=== PATIENT | female | born 1960 | race Caucasian/White ===

== ENCOUNTER 2022-04-10 09:21 | Emergency (ER) | payer SELFPAY ==
[2022-04-10 09:22] VITALS: BP 152/96; PULSE 82; RESP 14; TEMP 36.6; O2SAT 98; BMI 22.1
--- NOTE | 2022-04-10 10:01 | CT_ITS ---
STUDY: CT ABDOMEN AND PELVIS WITHOUT CONTRAST REASON FOR EXAM: Female, 61 years old. Right flank pain. Patient has a history of kidney stones. RADIATION DOSAGE (If Supplied By Facility): CTDIvol = ( 5.56 ) mGy, DLP = ( 251.61 ) mGycm TECHNIQUE: Transaxial images were obtained from the dome of the diaphragm to the symphysis pubis without oral contrast, and without intravenous contrast. Sagittal and coronal images were reconstructed. Individualized dose optimization techniques were used for this CT. COMPARISON: None. FINDINGS: The visualized lung bases are unremarkable. The visualized portions of the heart are within normal limits. Normal liver. The gallbladder is not visualized most likely secondary to prior cholecystectomy. Normal spleen. Normal pancreas. Normal bilateral adrenal glands. There is a mild degree of right hydronephrosis and right hydroureter down to the level of the urinary bladder. No obstructive calculus is seen at this time. Normal left kidney. Surgical clips are seen in the gastroesophageal junction in keeping with the prior partial gastrectomy and gastric bypass surgery. Normal small intestine. Normal colon. The appendix is visualized and appears normal. Normal abdominal aorta. Normal inferior vena cava. Normal retroperitoneum. Normal urinary bladder. Multiple venous collaterals are seen in the anterior subcutaneous tissues overlying the lower pelvic wall. There are mild degenerative changes of the visualized lumbar spine. CT/Abdomen/Pelvis without Cont IMPRESSION: Mild degree of right hydronephrosis and right hydroureter down to the level of the urinary bladder although no obstructive calculus is seen. Multiple venous collaterals are seen in the subcutaneous tissues of the anterior pelvic wall. The patient is status post cholecystectomy. Electronically Signed: Juvenal Cervantes MD at 11:18 EDT ,
[2022-04-10] MEDS: 0.9% Normal Saline 1,000 ML 1000 ML IV (10:12)
[2022-04-10 10:17] LABS: Absolute Lymphocyte Count 1.35 X10^3/uL (0.83-4.51); Absolute Neutrophil Count 4.2 X10^3/uL (2.0-7.7); Basophil# 0.02 X10^3/uL; Basophil% 0.3 % (0-1); Eosinophil# 0.02 X10^3/uL; Eosinophils% 0.3 % (0-5); Hematocrit 41.6 % (37-47); Hemoglobin 12.8 g/dL (12.0-15.0); Lymphocyte # 1.35 X10^3/ul (0.83-4.51); Lymphocyte % 22.7 % (19-41); Mean Corp Hgb Conc 30.8 g/dL (32-36); Mean Corpuscular Hgb 24.2 pg (27.0-32.0); Mean Corpuscular Volume 78.8 fL (81-99); Mean Platelet Vol. 9.5 fl (6.2-12.0); Monocyte# 0.35 X10^3/uL; Monocyte% 5.9 % (0-10); NRBC Flagged by Analyzer 0 % (0-5); Neutrophil # 4.18 X10^3/uL (2.7-7.7); Neutrophil % 70.3 % (47-70); Platelet Count 289 K/mm3 (150-450); RBC Distribution Width CV 14.6 % (11.6-14.6); RBC Distribution Width SD 41.5 fl (35.1-43.9); Red Blood Count 5.28 M/mm3 (4.2-5.4)
[2022-04-10 10:27] LABS: Anion Gap 6 (5-15); BUN 12 mg/dL (7-18); BUN/Creat Ratio 17.2 RATIO (10-20); Calcium,Total 9.3 mg/dL (8.5-10.1); Chloride 108 mmol/L (98-107); EST Glomerular Filtration Rate 91 mL/min (>60); Est Glom Filt Rate - Afr Amer 111 mL/min (>60); Estimated Creatinine Clearance 81.01 ml/min; Glucose 79 mg/dL (74-106); Potassium 4.6 mmol/L (3.5-5.1); Sodium Level 141 mmol/L (136-145)
[2022-04-10] MEDS: Ketorolac 30 MG/ML Syringe IV (10:32)
[2022-04-10 10:54] LABS: Mucous, Urine 0 SEEN /hpf (<or=2+); Squamous Epithelial Cells - UA 0 SEEN /hpf (5-10)
--- NOTE | 2022-04-10 10:54 | EX.ED.DYSGE1 ---
HPI History of Present Illness Chief Complaint: Flank Pain Informant: patient Onset/Context/Timing Onset: Days (3) Context: Gradual Onset Timing: Continuous Quality: Aching Location: Right flank Worsened by: Nothing Relieved by: Heating pad Narrative Narrative: Patient presents with right flank pain that has been constant for the past 3 days. Patient states it has gotten gradually worse. Patient describes her pain as aching. Patient states it is over the right flank area. Patient states nothing makes it worse. Patient states it is better with a heating pad. Patient has noted some blood in her urine. Patient denies any fevers or chills. Patient denies any nausea or vomiting. Patient denies any dysuria. Patient states she has a history of kidney stones and history of urinary tract infections. [facility] Medical History (Updated 04/10/22 @ 12:[address] Keshav Cordero DO) Kidney stones Home Medications ciprofloxacin HCl 500 mg tablet 500 mg PO BID #14 TABLETS 04/10/22 [Rx Last Taken Unknown] Allergy/AdvReac Type Severity Reaction Status Date / Time azithromycin Allergy Hives Verified 04/10/22 09:22 sulfamethoxazole Allergy Hives Verified 04/10/22 09:22 [From Bactrim] trimethoprim [From Bactrim] Allergy Hives Verified 04/10/22 09:22 Surgical History (Updated 04/10/22 @ 11:24 by Merry Garza) History of cholecystectomy Hx of gastric bypass Social History Smoking Status: Never smoker ROS [facility] ED Constitutional Constitutional ED: Denies chills or fever(s) Eyes Eyes: Denies blurry vision or change in vision ENT ENT ED: Denies rhinorrhea or sore throat Cardiovascular Cardiovascular: Denies chest pain or palpitations Respiratory/Chest Respiratory/Chest: Denies cough or dyspnea Gastrointestinal Gastrointestinal: Denies nausea or vomiting Genitourinary Genitourinary ED: Reports hematuria; Denies dysuria Musculoskeletal Musculoskeletal: Reports back pain; Denies neck pain Integumentary Denies abscess or rash Neurologic Neurologic: Denies headache(s) or weakness Allergic/Immunologic Allergic/Immunologic ED: Denies mouth swelling or urticaria EXAM Physical Exam Const Vital Signs: 04/10/22 09:22 04/10/22 11:39 Temperature 97.9 F Temperature Source Temporal Pulse Rate 82 60 Respiratory Rate 14 Blood Pressure 152/96 H 140/89 H Blood Pressure Mean 114 106 Pulse Ox 98 Oxygen Delivery Method Room Air Positive well nourished and well developed General Appearance ED: well developed HEENT Reports moist mucous membranes Neck supple and no JVD Resp normal respiratory effort and clear to auscultation bilaterally Cardio regular rate, regular rhythm and no murmurs GI normal to inspection, nondistended, normoactive bowel sounds and non-tender Palpation: soft Back/Spine General Back: CVA tenderness right Extremity normal to inspection General Extremety ED: Negative for edema or tenderness General Extremity: Negative for edema Neuro oriented x3, CN's II-XII intact bilaterally and no sensory deficits noted Sensorium / Orientation: alert Motor Exam: strength 5/5 throughout Psych mental status grossly normal Skin no rashes or lesions noted MDM MDM MDM Narrative Medical decision making narrative: Patient was given IV fluids and Toradol. CBC was within normal limits. Basic metabolic profile was essentially within normal limits. Urinalysis shows leukocyte esterases of 500 with 25-50 white blood cells and 1+ bacteria. Nitrates were positive. Occult blood was 150 with 10-25 red blood cells. Urine culture was ordered. CT scan of the abdomen pelvis was obtained. There is some right-sided hydronephrosis and hydroureter. There is no calculus visualized. This was interpreted by the radiologist and reviewed by myself. Patient was given a dose of Rocephin here. Patient was given a prescription for Cipro. Patient was instructed to follow-up with her primary care physician when she gets back home in [facility]. Patient was instructed return if worse in any way. Patient understood and was agreeable with plan. All questions were answered. Lab Data Attestation: I reviewed the patient's lab results. Labs: Laboratory Results - last 24 hr 04/10/22 04/10/22 04/10/22 10:10 10:10 10:45 WBC 6.0 RBC 5.28 Hgb 12.8 Hct 41.6 MCV 78.8 L MCH 24.2 L MCHC 30.8 L RDW Std Deviation 41.5 RDW Coeff of Micaela 14.6 Plt Count 289 MPV 9.5 Immature Gran % (Auto) 0.500 Neut % (Auto) 70.3 H Lymph % (Auto) 22.7 Stephenson % (Auto) 5.9 Eos % (Auto) 0.3 Baso % (Auto) 0.3 Absolute Neuts (auto) 4.2 Absolute Lymphs (auto) 1.35 Nucleated RBC % 0 Sodium 141 Potassium 4.6 Chloride 108 H Carbon Dioxide 27.0 Anion Gap 6 BUN 12 Creatinine 0.70 Estim Creat Clear Calc 81.01 Est GFR (MDRD) Af Amer 111 Est GFR (MDRD) Non-Af 91 BUN/Creatinine Ratio 17.2 Glucose 79 Calcium 9.3 Urine Color SEE COMMENT BELOW Urine Clarity Sl. Cloudy Urine pH 6.5 Ur Specific [place] 1.010 Urine Protein 30 H Urine Glucose (UA) Normal Urine Ketones 5 H Urine Occult Blood 150 H Urine Nitrite Positive H Urine Bilirubin 6 H Urine Urobilinogen 12 H Ur Leukocyte Esterase 500 H Urine RBC 10-25 SEEN Urine WBC 25-50 SEEN Ur Squamous Epith Cells 0 SEEN Urine Bacteria 1+ Urine Mucus 0 SEEN Radiography Diagnostic Testing: Clinical Impression(s) from Imaging Studies Abdomen/Pelvis CT 04/10/22 10:01 IMPRESSION: Mild degree of right hydronephrosis and right hydroureter down to the level of the urinary bladder although no obstructive calculus is seen. Multiple venous collaterals are seen in the subcutaneous tissues of the anterior pelvic wall. The patient is status post cholecystectomy. Electronically Signed: Juvenal Cervantes MD at 11:18 EDT , Discharge Plan Triage Chief Complaint: Flank Pain ED Provider: Keshav Cordero Dx/Rx/DC Orders Clinical Impression: Pyelonephritis, Hematuria Instructions: ED Pyelonephritis, Female (Adult) Prescriptions: New ciprofloxacin HCl [ciprofloxacin HCl] 500 MG tablet 500 mg PO BID Qty: 14 0RF Primary Care Provider: Care Physician,No Primary Referrals: Care Physician,No Primary [Primary Care Provider] - Doctor,Your [Non-Staff] - 5-7 Days Disposition Disposition: Home, Self Care
[2022-04-10 10:57] LABS: Glucose, Dipstick Normal (Normal); Ketone-Dipstick 5 mg/dl (Negative); Leukocyte Esterase-Dipstick 500 /ul (Negative); Nitrite-Dipstick Positive (Negative); Occult Blood-Urine 150 /ul (Negative); Protein-Dipstick 30 mg/dl (Negative); Urine Clarity Sl. Cloudy (Clear); Urine Urobilinogen 12 mg/dl (Normal); Urine pH 6.5 (5.0 - 8.0)
[2022-04-10 10:58] LABS: Color, Urine SEE COMMENT BELOW (Yellow); Urine Bilirubin Dipstick 6 mg/dL (Negative)
[2022-04-10 11:03] LABS: Bacteria 1+ /hpf (None Seen); Red Blood Cells-Urine 10-25 SEEN /hpf (0-5); White Blood Cells 25-50 SEEN /hpf (0-5)
[2022-04-10 11:39] VITALS: BP 140/89; PULSE 60
[2022-04-10] MEDS: Ceftriaxone 1 GM/50 ML BAG IV (12:09)
== END 2022-04-10 12:49 | disposition home or self-care (01) ==
PROVIDERS: Emergency Provider Emergency Medicine; Visit Provider Emergency Medicine
DX: N12 Tubulo-interstitial nephritis, not specified as acute or chronic (principal); Z87.442 Personal history of urinary calculi; Z87.440 Personal history of urinary (tract) infections
CPT/HCPCS: 74176; 80048; 81001; 85025; 87077; 87086; 87088; 87186; 96361; 96365; 96375; 99283; J7030; J7050; A4216